=== PATIENT | female | born 1965 | race African-American/Black ===

== ENCOUNTER → 2016-07-15 | Outpatient (CLI) | payer OTHER ==
--- NOTE | ~2016-07-15 | CR173 ---
[facility] A Service of [facility] & [facility] RADIOLOGY TEXT RESULTS PATIENT: DWAYNE OSMAN LOCATION: [facility] : 69 UNIT #: [id number] AGE: [address]: Marizol Sequeira MD SEX: F ORDER DR: [id number] [facility] [address] [place], [place] [address] [id number] O MR#: [id number] Acc #: [id number] NAME: DWAYNE OSMAN : 1965 SEX: F STUDY DATE/TIME: 07/15/2016 10:50 UNIT: [facility] ROOM: STUDY DESCRIPTION: CR Knee 3 Views Rt Attending Physician: Marizol Sequeira M.D. Referring Physician: Marizol Sequeira M.D. Ordering Physician: Marizol Sequeira M.D. Primary Care Physician: Isidro Escobar M.D. MEDICAL IMAGING REPORT This report is preliminary unless electronic signature is present EXAM Right knee series dated 07/15/2016. COMPARISON Right knee series dated 04/03/2013. HISTORY Pain and swelling in the right knee and right ankle. Staph infection in 2002, bone bruise in 2011. Patient fell off truck in 2014. . FINDINGS 3 views of the right knee were obtained. Prominent osteophytes and loss of the joint space is seen in the patellofemoral and tibiofemoral joints suggestive of ddasucnw-in-bwlbvx arthritic change. No well-defined acute displaced fracture or dislocation is seen. There is some sclerotic changes and some compression noted in the lateral tibial plateau, age indeterminate. It is unclear if it is post-traumatic or related to degenerative change but given the relative stability in the last 4 years it is chronic. Surrounding soft tissues do not demonstrate any significant abnormality. Dictated by... Jose Roberto Hamilton M.D. THIS IS AN ELECTRONICALLY VERIFIED REPORT Jose Roberto Hamilton M.D. at 07/16/2016 3:03 PM CPR/cmm TD: 07/15/2016 15:13 JOB #: [id number] [facility] A Service of [facility] RADIOLOGY TEXT RESULTS PATIENT: DWAYNE OSMAN LOCATION: [facility] #: [id number] : [birth year] UNIT #: [id number] AGE: [address]: Marizol Sequeira MD SEX: F ORDER DR: MEDICAL IMAGING REPORT COPY
--- NOTE | ~2016-07-15 | CR21 ---
[facility] A Service of [facility] RADIOLOGY TEXT RESULTS PATIENT: DWAYNE OSMAN LOCATION: [facility] : 69 UNIT #: [id number] AGE: [address]: Marizol Sequeira MD SEX: F ORDER DR: [id number] [facility] [address] [place], [place] [address] [id number] O MR#: [id number] Acc #: [id number] NAME: DWAYNE OSMAN : 1965 SEX: F STUDY DATE/TIME: 07/15/2016 10:51 UNIT: [facility] ROOM: STUDY DESCRIPTION: CR Ankle Min 3 Views Rt Attending Physician: Marizol Sequeira M.D. Referring Physician: Marizol Sequeira M.D. Ordering Physician: Marizol Sequeira M.D. Primary Care Physician: Isidro Escobar M.D. MEDICAL IMAGING REPORT This report is preliminary unless electronic signature is present EXAM Right ankle 3 views 07/15/2016 1051 hours HISTORY 51-year-old woman with pain and swelling of the right knee and ankle with no acute injury. History of previous bone bruise, staph infection and fall from truck in 2014. COMPARISON Right foot 09/10/2015. FINDINGS AP, lateral and oblique views demonstrate no acute fracture or dislocation. There is no significant joint space loss or spurring. There is spurring at the Achilles insertion and at the plantar surface similar to 09/10/2015. IMPRESSION Diffuse subcutaneous edema with no underlying fracture, dislocation or degenerative change at the ankle. Dictated by... Carie Vazquez M.D. THIS IS AN ELECTRONICALLY VERIFIED REPORT Carie Vazquez M.D. at 07/15/2016 6:58 PM PAT/sammr TD: 07/15/2016 16:26 JOB #: [id number] MEDICAL IMAGING REPORT COPY
== END | disposition home or self-care (01) ==
LOC: CRAD 10:31
DX: M19.90 Unspecified osteoarthritis, unspecified site (principal); M25.471 Effusion, right ankle
CPT/HCPCS: 73562; 73610

== ENCOUNTER → 2016-10-30 | Outpatient (CLI) | payer OTHER ==
--- NOTE | ~2016-10-30 | CR172 ---
[facility] A Service of [facility] & [facility] RADIOLOGY TEXT RESULTS PATIENT: DWAYNE OSMAN LOCATION: [facility] : 69 UNIT #: [id number] AGE: [address]: Marizol Sequeira MD SEX: F ORDER DR: [id number] [facility] [address] [place], [place] [address] [id number] O MR#: [id number] Acc #: [id number] NAME: DWAYNE OSMAN : 1965 SEX: F STUDY DATE/TIME: 10/30/2016 9:44 UNIT: [facility] ROOM: STUDY DESCRIPTION: CR Knee 3 Views Lt Attending Physician: Marizol Sequeira M.D. Referring Physician: Marizol Sequeira M.D. Ordering Physician: Marizol Sequeira M.D. Primary Care Physician: Isidro Escobar M.D. MEDICAL IMAGING REPORT This report is preliminary unless electronic signature is present EXAM Left knee, 3 views, 10/30/2016. HISTORY Left knee pain and stiffness for 4 months, osteoarthritis left knee. No known injury. FINDINGS Three views of the left knee demonstrated no fracture. There is degenerative change with marked narrowing of the medial compartment of the knee and moderate narrowing of the lateral compartment. Osteophytes extend off the femoral condyles, the tibial plateau, and the posterior patella. There is no joint effusion. IMPRESSION Degenerative change about the left knee. No acute abnormality. Dictated by... Andrew Hickman M.D. THIS IS AN ELECTRONICALLY VERIFIED REPORT Andrew Hickman M.D. at 10/31/2016 2:16 PM THAD/dee dee TD: 10/30/2016 22:21 JOB #: [id number] MEDICAL IMAGING REPORT Page 1 of 1 COPY
== END | disposition home or self-care (01) ==
LOC: CRAD 09:29
DX: M25.562 Pain in left knee (principal)
CPT/HCPCS: 73562